=== PATIENT | female | born 2000 | race Caucasian/White ===

== ENCOUNTER 2020-03-20 04:44 | Observation (INO) ==
[2020-03-20] MEDS ORDERED: Ketorolac 15 MG/ML VIAL IVP ONE (05:39)
[2020-03-20 05:50] LABS: Amphetamine Screen,Urine Negative ng/mL (Cutoff=1000); Barbiturate Screen,Urine Negative ng/mL (Cutoff=200); Benzodiazepines Screen,Urine Negative ng/mL (Cutoff=200); Cannabinoid Screen,Urine Negative ng/mL (Cutoff = 50); Cocaine Screen,Urine Negative ng/mL (Cutoff= 300); Opiate Screen,Urine Negative ng/mL (Cutoff=300); Phencyclidine Screen,Urine Negative ng/mL (Cutoff=25)
[2020-03-20 06:13] LABS: Immature Granulocytes % 0.3 % (0-4); Platelet Count 167 K/mcL (140-400)
[2020-03-20 06:14] LABS: Basophils % 0.4 %; Eosinophils # 0.1 K/mcL (0.0-0.6); Eosinophils % 1.3 %; Hemoglobin 13.1 g/dL (11.5-15.4); Immature Platelets 15.2 % (1.1-6.1); Lymphocytes # 2.5 K/mcL (0.6-4.6); Lymphocytes % 37.7 %; Mean Corpuscular HGB Conc 33.6 g/dL (31.6-35.5); Mean Corpuscular Hemoglobin 28.9 pg (28.0-33.3); Mean Corpuscular Volume 85.9 fL (83.0-100.0); Mean Platelet Volume 13.2 fL (9.4-12.4); Monocytes # 0.5 K/mcL (0.0-1.3); Monocytes % 7.6 %; Neutrophils # 3.5 K/mcL (1.6-8.9); Red Blood Count 4.54 M/mcL (3.82-4.97); Red Cell Distribution Width 12.1 % (11.5-14.5); Segmented Neutrophils % 52.7 %; White Blood Count 6.7 K/mcL (4.3-11.1)
[2020-03-20] MEDS ORDERED: Isovue-370 500 ML BOTTLE IVP ONE (06:21)
[2020-03-20 06:38] LABS: BUN/Creatinine Ratio 16 (6-26); Blood Urea Nitrogen 12 mg/dL (6-20); Calcium 9.4 mg/dL (8.6-10.3); Carbon Dioxide 20 mEq/L (23-29); Chloride 107 mEq/L (98-107); Glucose 111 mg/dL (70-105); Osmolality,Calculated 288 (280-300); Potassium 3.2 mEq/L (3.5-5.1); Sodium 139 mEq/L (136-145); Troponin I < 0.03 ng/mL (< 0.04); eGFR For African Americans > 60 (> 60); eGFR For Non-African Americans > 60 (> 60)
[2020-03-20 08:03] VITALS: BP 112/78
[2020-03-20] MEDS ORDERED: Naloxone 0.4 MG/ML INJ IVP PRN (08:03)
[2020-03-20] MEDS ORDERED: Ketorolac 15 MG/ML VIAL IVP PRN (08:25)
[2020-03-20] MEDS ORDERED: *HR* LORazepam 2 MG/ML VIAL IVP ONE (08:25)
[2020-03-20] MEDS ORDERED: Perflutren Lipid Microsphere 1.3 ML in 0.9 % Sodium Chloride 8.7 ML IVP PRN (08:43)
[2020-03-20 08:45] LABS: Magnesium 1.8 mg/dL (1.6-2.6)
[2020-03-20 08:58] LABS: Thyroid Stimulating Hormone 3.803 mcIU/mL (0.340-5.600)
== END 2020-03-20 09:59 | disposition left against medical advice (07) ==
LOC: 3BNU 04:44 → EMEROOARM 04:44 → 3BNU 09:16
PROVIDERS: ADMIT Student in an Organized Health Care Education/Training Program; ATTEND Student in an Organized Health Care Education/Training Program

== ENCOUNTER 2020-03-20 23:25 | Observation (INO) ==
[2020-03-20] MEDS ORDERED: Ketorolac 15 MG/ML VIAL IVP ONE (23:41)
[2020-03-21 00:43] LABS: Basophils # 0.1 K/mcL (0.0-0.2); Basophils % 0.5 %; Eosinophils # 0.1 K/mcL (0.0-0.6); Eosinophils % 0.6 %; Hemoglobin 12.9 g/dL (11.5-15.4); Immature Granulocytes % 0.3 % (0-4); Lymphocytes # 2.5 K/mcL (0.6-4.6); Mean Corpuscular HGB Conc 33.1 g/dL (31.6-35.5); Mean Corpuscular Hemoglobin 28.8 pg (28.0-33.3); Mean Corpuscular Volume 87.1 fL (83.0-100.0); Mean Platelet Volume 12.9 fL (9.4-12.4); Monocytes # 0.9 K/mcL (0.0-1.3); Neutrophils # 6.1 K/mcL (1.6-8.9); Platelet Count 188 K/mcL (140-400); Red Blood Count 4.48 M/mcL (3.82-4.97); Red Cell Distribution Width 12.5 % (11.5-14.5); Segmented Neutrophils % 63.6 %; White Blood Count 9.6 K/mcL (4.3-11.1)
[2020-03-21 00:53] LABS: BUN/Creatinine Ratio 23 (6-26); Blood Urea Nitrogen 16 mg/dL (6-20); Calcium 9.1 mg/dL (8.6-10.3); Carbon Dioxide 20 mEq/L (23-29); Chloride 109 mEq/L (98-107); Glucose 87 mg/dL (70-105); Osmolality,Calculated 291 (280-300); Potassium 4.1 mEq/L (3.5-5.1); Sodium 140 mEq/L (136-145); Troponin I < 0.03 ng/mL (< 0.04); eGFR For African Americans > 60 (> 60); eGFR For Non-African Americans > 60 (> 60)
[2020-03-21] MEDS ORDERED: Ondansetron 4 MG/2 ML VIAL IVP PRN (01:57)
[2020-03-21] MEDS ORDERED: Naloxone 0.4 MG/ML INJ IVP PRN (01:57)
[2020-03-21] MEDS ORDERED: Perflutren Lipid Microsphere 1.3 ML in 0.9 % Sodium Chloride 8.7 ML IVP PRN (01:59)
[2020-03-21] MEDS ORDERED: Nitroglycerin 0.4 MG TAB.SUBL SL PRN (02:10)
[2020-03-21 05:49] LABS: Albumin 4.4 g/dL (3.5-5.7); Albumin/Globulin Ratio 1.5 (1.1-2.2); Bilirubin,Direct 0.1 mg/dL (0.0-0.2); Bilirubin,Indirect 0.3 mg/dL (0.0-1.0); Bilirubin,Total 0.4 mg/dL (0.3-1.0); Total Protein 7.4 g/dL (6.4-8.9)
[2020-03-21] MEDS ORDERED: *HR* Heparin 5,000 UNIT/ML VIAL SQ SCH (06:00)
[2020-03-21 10:55] VITALS: BP 106/69
[2020-03-21 11:16] LABS: Chol/HDL Ratio 2.2 (0-4.9)
[2020-03-21 13:11] LABS: Estimated Average Glucose 97 mg/dl
== END 2020-03-21 14:31 | disposition home or self-care (01) ==
LOC: EMEROOARM 23:25 → 3BNU 23:25 → SUATTDRO 03-21 02:02 → 3BNU 03-21 02:47
PROVIDERS: ADMIT Internal Medicine; ATTEND Internal Medicine